=== PATIENT | male | born 1955 | race Caucasian/White ===

== ENCOUNTER → 2020-12-01 15:38 | Outpatient (CLI) | payer BC, SELFPAY ==
[2020-12-01] MEDS: COVID-19 VACC #1, MRNA(MOD) 100 MCG/0.5 ML VIAL IM (15:51)
== END ==
PROVIDERS: Visit Provider Internal Medicine
DX: Z23 Encounter for immunization (principal)
CPT/HCPCS: 0011A; 91301

== ENCOUNTER → 2020-12-29 16:15 | Outpatient (CLI) | payer BC, SELFPAY ==
[2020-12-29] MEDS: COVID-19 VACC #2, MRNA(MOD) 100 MCG/0.5 ML VIAL IM (16:20)
== END ==
PROVIDERS: Visit Provider Internal Medicine
DX: Z23 Encounter for immunization (principal)
CPT/HCPCS: 0012A; 91301

== ENCOUNTER → 2021-02-02 15:10 | Outpatient (CLI) | payer BC, SELFPAY ==
--- NOTE | 2021-02-02 15:10 | DI.CT.S_ITS ---
PROCEDURE: CT ABDOMEN PELVIS WO CON INDICATIONS: Intermitant swelling left abd r/o discrete incisional hernia TECHNIQUE: After the administration of oral contrast, 5 mm thick sections acquired from the diaphragms to the symphysis. 5 mm coronal and sagittal reformats were performed. For radiation dose reduction, the following was used: automated exposure control, adjustment of mA and/or kV according to patient size. COMPARISON: None. FINDINGS: Image quality: Excellent. ABDOMEN: Lung bases: Lung bases are clear. Heart size is normal. Solid organs: Liver is normal in size. Gallbladder appears normal. Pancreas is normal in size. Spleen is normal in size. No adrenal nodules. Both kidneys are normal in size, without hydronephrosis or nephrolithiasis. Peritoneum and bowel: Bowel loops demonstrate normal wall thickness and caliber. No free fluid or air. Nodes and vessels: No retroperitoneal or mesenteric adenopathy by size criteria. Aorta and inferior vena cava are normal in size. Miscellaneous: No ventral hernias. PELVIS: Genitourinary: Bladder wall thickness is normal. Miscellaneous: No inguinal hernias or adenopathy. Bones: No suspicious bony lesions. No vertebral body compression fractures. IMPRESSION: Generalized colonic obstipation is present greater on the right than the left. Oral contrast has transited through the small bowel almost to the cecum. No lesion is found, no body wall hernia is identified and no internal hernia is suspected. Dictated by: Asher Campos M.D. on 02/02/2021 at 17:32 Approved by: Asher Campos M.D. on 02/02/2021 at 17:33
== END ==
PROVIDERS: Referring Provider Specialist; Visit Provider Specialist
DX: R10.32 Left lower quadrant pain (principal); R19.04 Left lower quadrant abdominal swelling, mass and lump; K59.00 Constipation, unspecified
CPT/HCPCS: 74176

== ENCOUNTER → 2021-09-16 11:48 | Outpatient (CLI) | payer BC, SELFPAY ==
[2021-09-16] MEDS: COVID-19 VACC #3, MRNA(MOD) 50 MCG/0.25 ML VIAL IM (12:10)
== END ==
PROVIDERS: PCP Physician Assistant Medical; Visit Provider Internal Medicine
DX: Z23 Encounter for immunization (principal)
CPT/HCPCS: 0013A; 91301

== ENCOUNTER → 2022-01-12 09:51 | Outpatient (CLI) | payer BC, SELFPAY ==
[2022-01-12 19:02] LABS: Alanine Aminotransferase 35 IU/L (<50); Albumin 4.9 g/dL (3.5-5.0); Albumin Globulin Ratio 1.8 (1.0-2.8); Alkaline Phosphatase 58 U/L (38-126); Aspartate Aminotransferase 34 IU/L (17-59); BUN Creatinine Ratio 34.9 (6-22); Bilirubin Total 0.6 mg/dL (0.2-1.3); Blood Urea Nitrogen 30 mg/dL (9-20); Calcium 9.5 mg/dL (8.4-10.2); Carbon Dioxide 33 mmol/L (22-32); Chloride 104 mmol/L (98-107); Estimated Glomerular Filt Rate > 60.0 mL/min (>60); Globulin 2.7 g/dL (1.7-4.1); Glucose 102 mg/dL (80-110); HEMOLYSIS < 15 (0-50); Potassium 4.3 mmol/L (3.4-5.1); Sodium 143 mmol/L (137-145); Total Protein 7.6 g/dL (6.3-8.2)
[2022-01-12 19:04] LABS: Add Manual Diff / Slide Review NO; Basophils Absolute Auto 0 /uL (0-100); Eosinophils Absolute Auto 300 /uL (0-450); Eosinophils Percent Auto 6.2 % (2-4); Hematocrit 47.3 % (41-53); Hemoglobin 15.7 g/dL (13.5-17.5); Lymphocytes Absolute Auto 1200 /uL (1100-4500); Lymphocytes Percent Auto 22.3 % (25-40); Mean Corpuscular HGB Conc 33.2 % (30-36); Mean Corpuscular Hemoglobin 28.1 PG (26-34); Mean Corpuscular Volume 84.7 fL (80-100); Monocytes Absolute Auto 500 /uL (0-900); Monocytes Percent Auto 10.3 % (3-14); Neutrophils Absolute Auto 3100 /uL (1500-7000); Neutrophils Percent Auto 60.2 % (50-75); Platelet Count 244 X10^3/uL (150-400); Red Blood Cell Count 5.59 X10^6/uL (4.5-5.9); Red Cell Distribution Width 13.8 % (11.6-14.8); White Blood Cell Count 5.2 X10^3/uL (4.5-11.0)
[2022-01-12 19:12] LABS: Hemoglobin A1C% w Est Avg Glu 5.7 % (4.0-6.0)
[2022-01-12 19:31] LABS: TSH w/ Reflex to FT4 1.38 uIU/mL (0.47-4.68)
[2022-01-12 19:42] LABS: Prostate Specific Antigen Scrn < 0.064 ng/mL (0.1-4.0)
== END ==
PROVIDERS: PCP Physician Assistant Medical; Visit Provider Family Medicine
DX: I10 Essential (primary) hypertension (principal); M25.559 Pain in unspecified hip; Z12.5 Encounter for screening for malignant neoplasm of prostate
CPT/HCPCS: 80053; 83036; 84443; 85025; G0103

== ENCOUNTER 2022-10-27 23:10 | Emergency (ER) | payer BC, SELFPAY ==
[2022-10-27 23:31] VITALS: BP 141/78; PULSE 52; RESP 18; TEMP 36.6; O2SAT 97; BMI 21.7
--- NOTE | 2022-10-28 00:20 | PC.NURSE ---
states that he is having left side pain that feels like a previous kidney stone - states that he has had similar before - states that it has been years since his last kidney stone - blood in urine - alert and oriented - PWD with respirations equal and unlabored bilaterally
[2022-10-28 00:27] LABS: Bilirubin Urine UA NEGATIVE (NEGATIVE); Glucose Urine UA NEGATIVE (Negative); Ketones Urine UA NEGATIVE (NEGATIVE); Leukocyte Esterase Urine UA NEGATIVE (NEGATIVE); Nitrite Urine UA NEGATIVE (Negative); Occult Blood Urine UA 3+ (Negative); Protein Urine UA 1+ (Negative); Urobilinogen Urine UA 0.2 E.U./dL (0.2)
[2022-10-28 00:28] LABS: Appearance Urine UA Slightly Cloudy; Bacteria Urine Occasional (0-1); Calcium Oxalate Crystals Urine Moderate; Color Urine UA BROWN; RBC Urine 30-100/HPF (0-5/HPF); Squamous Epithelial Cell Urine 0-1 /HPF (0-5/HPF); WBC Urine None Seen (0-5/HPF)
[2022-10-28 00:29] LABS: Culture Indicated Urine Cult Not Indicated
--- NOTE | 2022-10-28 00:38 | ED_ITS ---
HPI - General Adult General Chief complaint: Urogenital-Male Stated complaint: blood in urine Time Seen by Provider: 10/28/22 00:38 Mode of arrival: Ambulatory History of Present Illness HPI narrative: 67-year-old gentleman with a history of epilepsy, bradycardia, hypertension, prostate cancer in 2015 and 1 prior episode of kidney stones that required lithotripsy for treatment approximately 5 years ago presents with left flank pain for the last 48 hours with brown urine noted yesterday in red/bloody urine today. Continues to note some minor left lower quadrant tenderness that is increasing in intensity. He states that he prefers minimal pain medications possible. He has not had any vomiting, diarrhea, fevers, cough, chills, palpitations, chest pain, headaches. Related Data Home Medications Medication Instructions Recorded Confirmed lamotrigine 150 mg tablet 300 mg PO BID 10/03/21 01/12/22 albuterol sulfate 90 mcg/actuation 2 puff inhalation Q6H PRN 01/11/22 01/12/22 aerosol inhaler budesonide 0.5 mg/2 mL suspension 0.5 mg inhalation ONCE 01/11/22 01/12/22 for nebulization metoprolol succinate 25 mg 25 mg PO DAILY 01/11/22 01/12/22 tablet,extended release 24 hr azelastine 137 mcg (0.1 %) nasal 2 spray intranasal BID 01/12/22 01/12/22 spray aerosol fexofenadine 180 mg tablet 180 mg PO DAILY 01/12/22 01/12/22 Previous Rx's Medication Instructions Recorded fluticasone propionate 50 2 spray intranasal DAILY #3 ea 01/24/22 mcg/actuation nasal spray,suspension (Allergy Relief (fluticasone)) amlodipine 10 mg tablet 10 mg PO DAILY #90 tabs 06/19/22 olmesartan 40 mg tablet (Benicar) 40 mg PO DAILY #90 tabs 06/19/22 oxycodone 5 mg tablet 5 mg PO Q6H PRN pain #30 tabs 08/10/22 lidocaine 4 % topical gel 1 applic topical BID #30 grams 08/16/22 tamsulosin 0.4 mg capsule (Flomax) 0.4 mg PO DAILY #30 caps 10/28/22 Allergies Allergy/AdvReac Type Severity Reaction Status Date / Time cat dander Allergy Mild Hives Verified 01/12/22 08:58 pollen extracts Allergy Mild Hives Verified 01/12/22 08:58 levetiracetam [From Keppra] Allergy Unknown Verified 01/12/22 08:58 DUST MITE Allergy Unknown SHORTNESS Uncoded 01/12/22 08:58 OF BREATH Review of Systems Review of Systems Narrative: Remainder of complete review of systems is otherwise unremarkable except for that included in the HPI. Patient History Medical History Allergies Asthma Bradycardia Deviated septum Epilepsy Fracture of lumbar spine Hip pain HTN (hypertension) Prostate cancer (~2014) Unspecified abdominal hernia without obstruction or gangrene Surgical History Anesthesia H/O inguinal hernia repair History of prostatectomy (~2016) Hx of hernia repair Hx of sinus surgery Family History Father Heart disease Stroke Diabetes mellitus Mother Pancreatic cancer Sister Mental health problem Social History marital status: household members: spouse and children occupational status: previously employed Smoking Status: Never smoker substance use type: marijuana Smoking Status: Never smoker Exam Initial Vital Signs Initial Vital Signs: Vital Signs Temperature 98 F 10/27/22 23:31 Pulse Rate 52 L 10/27/22 23:31 Respiratory Rate 18 10/27/22 23:31 Blood Pressure 141/78 H 10/27/22 23:31 Pulse Oximetry 97 10/27/22 23:31 Oxygen Delivery Method 10/27/22 23:31 General: Healthy appearing, in no acute distress. Able to give a complete and coherent history. Well-nourished well-developed HEENT: Moist mucous membranes, normal sclera with reactive pupils, Neck: No JVD, supple Respiratory: Lungs are clear to auscultation, no wheezing no rales no rhonchi. Full and symmetrical air movement Cardiac: Regular rate and rhythm no murmurs no bruits Abdomen: Soft, nontender, good bowel tones, mild left flank pain Skin: Warm and dry, no rashes Neurologic: Grossly neurologically intact with no obvious asymmetries or abnormalities Extremities: No trauma, well perfused Psych: Cooperative, appropriate insight and affect Course Orders Ordered: ED Orders 10/28/22 00:16 Urinalysis and Microscopic Stat 10/28/22 00:30 Complete Blood Count AUTO DIFF Stat Comprehensive Metabolic Panel Stat 10/28/22 00:47 CT kidney ureter bladder (KUB) Stat Sodium Chloride (Normal Saline 0.9%) 1,000 mls @ 1,000 mls/hr IV BOLUS ONE Stop: 10/28/22 01:45 Discontinued Medications Ketorolac Tromethamine (Ketorolac 60 Mg/2 Ml Vial) 15 mg IV NOW ONE Stop: 10/28/22 00:47 Vital Signs Vital signs: Vital Signs - 8 hr 10/27/22 23:31 Temperature 98 F Pulse Rate 52 L Respiratory Rate 18 Blood Pressure 141/78 H Pulse Oximetry 97 Oxygen Delivery Method Room Air Medical Decision Making Lab Data Result diagrams: 10/28/22 00:30 10/28/22 00:30 Labs: Lab Results 10/28/22 10/28/22 10/28/22 Range/Units 00:16 00:30 00:30 WBC 5.9 (4.5-11.0) X10^3/uL RBC 4.79 (4.5-5.9) X10^6/uL Hgb 13.3 L (13.5-17.5) g/dL Hct 40.5 L (41-53) % MCV 84.7 (80-100) fL MCH 27.7 (26-34) PG MCHC 32.8 (30-36) % RDW 14.6 (11.6-14.8) % Plt Count 241 (150-400) X10^3/uL Neut % (Auto) 60.1 (50-75) % Lymph % (Auto) 24.6 L (25-40) % [place] % (Auto) 11.8 (3-14) % Eos % (Auto) 2.8 (2-4) % Baso % (Auto) 0.7 (0-2) % Neut # (Auto) 3500 (4801-9918) /uL Lymph # (Auto) 1400 (2300-1226) /uL [place] # (Auto) 700 (0-900) /uL Eos # (Auto) 200 (0-450) /uL Baso # (Auto) 0 (0-100) /uL Sodium 141 (137-145) mmol/L Potassium 3.9 (3.4-5.1) mmol/L Chloride 103 (98-107) mmol/L Carbon Dioxide 27 (22-32) mmol/L BUN 26 H (9-20) mg/dL Creatinine 0.73 (0.66-1.25) mg/dL Estimated GFR > 60 (>60) mL/min BUN/Creatinine Ratio 35.6 H (6-22) Glucose 90 (80-110) mg/dL Calcium 8.5 (8.4-10.2) mg/dL Total Bilirubin 0.4 (0.2-1.3) mg/dL AST 34 (17-59) IU/L ALT 30 (<50) IU/L Alkaline Phosphatase 56 (38-126) U/L Total Protein 6.9 (6.3-8.2) g/dL Albumin 4.2 (3.5-5.0) g/dL Globulin 2.7 (1.7-4.1) g/dL Albumin/Globulin Ratio 1.6 (1.0-2.8) Urine Color Brown Urine Appearance Slightly cloudy Urine pH 6.0 (4.5-8.0) Ur Specific [place] 1.020 (1.000-1.035) Urine Protein 1+ H (Negative) Urine Glucose (UA) Negative (Negative) g/dL Urine Ketones Negative (NEGATIVE) Urine Occult Blood 3+ H (Negative) Urine Nitrate Negative (Negative) Urine Bilirubin Negative (NEGATIVE) Urine Urobilinogen 0.2 (0.2) E.U./dL Ur Leukocyte Esterase Negative (NEGATIVE) Urine RBC 30-100/hpf H (0-5/HPF) Urine WBC None seen (0-5/HPF) Ur Squamous Epith Cells 0-1 /hpf (0-5/HPF) Calcium Oxalate Crystal Moderate H Urine Bacteria Occasional (0-1) (None) Ur Culture Indicated? Cult not indicated Imaging Data CT scan - abdomen/pelvis: Radiologist's Impression: FINDINGS:? Image quality:? Excellent.? ? Lung bases:? Unremarkable.? ? Heart:? No significant findings. ? URINARY: Right Kidney: ? No stones or hydronephrosis.? Right Ureter:? No hydroureter.? ? Left Kidney:? Slight asymmetric prominence of the left central renal collecting system.? Additionally a nonobstructive calcification is seen at the middle 3rd of the posterior border of the collecting system on the left measuring 1 mm or less. Left Ureter:? Along the course of the left ureter there is a 1.5 mm calcificat ion seen on series 2, image 49.? ? Bladder:? Normal wall thickness. No stones. ? ? ? ABDOMEN: Liver:? Unremarkable.? ? Gallbladder:? Normal.? ? Biliary ducts:? Unremarkable.? ? Pancreas:? Unremarkable.? ? Spleen:? Unremarkable.? ? Adrenal Glands:? Unremarkable.? ? ? Stomach and Bowel:? Stomach, small bowel loops, and colon are unremarkable.? Peritoneum:? No abnormal intraperitoneal fluid.? No free air.? ? Ventral Wall: ? No hernia.? Abdominal Nodes:? No enlarged retroperitoneal or mesenteric lymph nodes.? Vessels:? Aorta and inferior vena cava are normal in size.? ? PELVIS: Pelvic Organs:? Unremarkable.? ? Pelvic Nodes: Unremarkable. Miscellaneous: No inguinal hernias are seen. ? ? ? Bones:? Unremarkable. ? IMPRESSION:? Slight asymmetric prominence of the left renal collecting system.? Along the expected course of the left ureter more distally there is a single 1.5 mm calcification as the presumed cause for left-sided symptomatology. ? ? ? Dictated by: Asher Campos M.D. on 10/28/2022 at 1:18 ? ? [facility] Narrative Medical decision making narrative: 67-year-old gentleman with a history of calcium oxalate kidney stone presents with increasing left flank and left lower quadrant tenderness. His urine has multiple red blood cells but does not suggest urinary tract infection. CT KUB does show mild left hydronephrosis and nonobstructing ureteral stone in the middle 3rd of the ureter. Findings reviewed with patient. At this point he is not showing signs of urinary tract infection, stone is not obstructing but this does offer a reasonable explanation for his left flank pain. Will suggest that he continue to use ibuprofen to help with pain control, drink plenty fluids and schedule an outpatient follow-up with [facility] Discharge Plan Departure Patient Disposition: Home Clinical Impression: Ureterolithiasis Instructions: DI for Kidney Stones Activity Restrictions/Additional Instructions: Thank you for coming in tonight It does look like you have a small stone in your left ureter. This is not completely obstructing which is probably why it has been irritating over the last 2 weeks but not dramatic pain. Using 400 mg of ibuprofen (2 [id number] pills) and 1 Tylenol every 6 hours can be very helpful in controlling pain. Please make sure you are also drinking plenty of water Flomax and help encourage kidney stones to pass, I am going to have you take 1 Flomax daily. You can stop taking this once the stone has passed. This prescription was electronically transmitted to [facility]. Would encourage you to schedule an appointment with urology at . The phone number to schedule an appointment is [phone] If you find that you are getting worse or develop any new symptoms, please feel free to return to the emergency department for further evaluation. Prescriptions: New tamsulosin [Flomax] 0.4 mg capsule 0.4 mg PO DAILY Qty: 30 0RF No Action lamotrigine 150 mg tablet 300 mg PO BID fluticasone propionate [Allergy Relief (fluticasone)] 50 mcg/actuation spray,suspension 2 spray intranasal DAILY Qty: 3 3RF Rx Instructions: administer into each nostril amlodipine 10 mg tablet 10 mg PO DAILY Qty: 90 1RF olmesartan [Benicar] 40 mg tablet 40 mg PO DAILY Qty: 90 1RF lidocaine 4 % gel 1 applic topical BID Qty: 30 0RF fexofenadine 180 mg tablet 180 mg PO DAILY azelastine 137 mcg (0.1 %) aerosol,spray 2 spray intranasal BID Rx Instructions: administer into each nostril metoprolol succinate 25 mg tablet extended release 24 hr 25 mg PO DAILY budesonide 0.5 mg/2 mL suspension for nebulization 0.5 mg inhalation ONCE albuterol sulfate 90 mcg/actuation HFA aerosol inhaler 2 puff inhalation Q6H PRN oxycodone 5 mg tablet 5 mg PO Q6H PRN (Reason: pain) Qty: 30 0RF Rx Instructions: 1-2 po prn Referrals: Sonam Calloway MD [Physician] - Darlene Johnson PA-C [Primary Care Provider] -
--- NOTE | 2022-10-28 00:47 | DI.CT.S_ITS ---
PROCEDURE: CT KIDNEY URETER BLADDER (KUB) INDICATIONS: left flank pain ? kidney stone TECHNIQUE: Axial sections were acquired from the lung bases to the pubic symphysis. Coronal and sagittal reformats were performed. For radiation dose reduction, the following was used: automated exposure control, adjustment of mA and/or kV according to patient size. COMPARISON: None. FINDINGS: Image quality: Excellent. Lung bases: Unremarkable. Heart: No significant findings. URINARY: Right Kidney: No stones or hydronephrosis. Right Ureter: No hydroureter. Left Kidney: Slight asymmetric prominence of the left central renal collecting system. Additionally a nonobstructive calcification is seen at the middle 3rd of the posterior border of the collecting system on the left measuring 1 mm or less. Left Ureter: Along the course of the left ureter there is a 1.5 mm calcification seen on series 2, image 49. Bladder: Normal wall thickness. No stones. ABDOMEN: Liver: Unremarkable. Gallbladder: Normal. Biliary ducts: Unremarkable. Pancreas: Unremarkable. Spleen: Unremarkable. Adrenal Glands: Unremarkable. Stomach and Bowel: Stomach, small bowel loops, and colon are unremarkable. Peritoneum: No abnormal intraperitoneal fluid. No free air. Ventral Wall: No hernia. Abdominal Nodes: No enlarged retroperitoneal or mesenteric lymph nodes. Vessels: Aorta and inferior vena cava are normal in size. PELVIS: Pelvic Organs: Unremarkable. Pelvic Nodes: Unremarkable. Miscellaneous: No inguinal hernias are seen. Bones: Unremarkable. IMPRESSION: Slight asymmetric prominence of the left renal collecting system. Along the expected course of the left ureter more distally there is a single 1.5 mm calcification as the presumed cause for left-sided symptomatology. Dictated by: Asher Campos M.D. on 10/28/2022 at 1:18 Approved by: Asher Campos M.D. on 10/28/2022 at 1:21
--- NOTE | 2022-10-28 00:56 | PC.NURSE ---
Ambulatory to CT with tech
--- NOTE | 2022-10-28 01:00 | PC.NURSE ---
returns to the ER from radiology
[2022-10-28 01:16] LABS: Add Manual Diff / Slide Review NO; Basophils Absolute Auto 0 /uL (0-100); Basophils Percent Auto 0.7 % (0-2); Eosinophils Absolute Auto 200 /uL (0-450); Eosinophils Percent Auto 2.8 % (2-4); Hematocrit 40.5 % (41-53); Hemoglobin 13.3 g/dL (13.5-17.5); Lymphocytes Absolute Auto 1400 /uL (1100-4500); Lymphocytes Percent Auto 24.6 % (25-40); Mean Corpuscular HGB Conc 32.8 % (30-36); Mean Corpuscular Hemoglobin 27.7 PG (26-34); Mean Corpuscular Volume 84.7 fL (80-100); Monocytes Absolute Auto 700 /uL (0-900); Monocytes Percent Auto 11.8 % (3-14); Neutrophils Absolute Auto 3500 /uL (1500-7000); Neutrophils Percent Auto 60.1 % (50-75); Platelet Count 241 X10^3/uL (150-400); Red Blood Cell Count 4.79 X10^6/uL (4.5-5.9); Red Cell Distribution Width 14.6 % (11.6-14.8); White Blood Cell Count 5.9 X10^3/uL (4.5-11.0)
[2022-10-28 01:22] LABS: Alanine Aminotransferase 30 IU/L (<50); Albumin 4.2 g/dL (3.5-5.0); Albumin Globulin Ratio 1.6 (1.0-2.8); Alkaline Phosphatase 56 U/L (38-126); Aspartate Aminotransferase 34 IU/L (17-59); BUN Creatinine Ratio 35.6 (6-22); Bilirubin Total 0.4 mg/dL (0.2-1.3); Blood Urea Nitrogen 26 mg/dL (9-20); Calcium 8.5 mg/dL (8.4-10.2); Carbon Dioxide 27 mmol/L (22-32); Chloride 103 mmol/L (98-107); Estimated Glomerular Filt Rate > 60 mL/min (>60); Globulin 2.7 g/dL (1.7-4.1); Glucose 90 mg/dL (80-110); HEMOLYSIS 20 (0-50); Potassium 3.9 mmol/L (3.4-5.1); Sodium 141 mmol/L (137-145); Total Protein 6.9 g/dL (6.3-8.2)
[2022-10-28] MEDS: TAMSULOSIN 0.4 MG CAPSULE PO (01:50)
[2022-10-28 02:00] VITALS: BP 147/85; PULSE 54; RESP 16; O2SAT 98
== END 2022-10-28 02:05 | disposition home or self-care (01) ==
PROVIDERS: Emergency Provider Emergency Medicine; PCP Physician Assistant Medical
DX: N20.1 Calculus of ureter (principal); R10.9 Unspecified abdominal pain; Z87.442 Personal history of urinary calculi
CPT/HCPCS: 36415; 74176; 80053; 81001; 85025; 99283; 99284

== ENCOUNTER → 2022-11-23 11:46 | Outpatient (CLI) | payer BC, SELFPAY ==
[2022-11-23 13:32] LABS: Appearance Urine UA CLEAR; Bilirubin Urine UA NEGATIVE (NEGATIVE); Color Urine UA YELLOW; Glucose Urine UA NEGATIVE (Negative); Ketones Urine UA TRACE (NEGATIVE); Leukocyte Esterase Urine UA NEGATIVE (NEGATIVE); Nitrite Urine UA NEGATIVE (Negative); Occult Blood Urine UA 3+ (Negative); Protein Urine UA NEGATIVE (Negative); Specific Gravity Urine UA 1.015 (1.000-1.035); Urobilinogen Urine UA 0.2 E.U./dL (0.2); pH Urine UA 5.5 (4.5-8.0)
[2022-11-23 13:37] LABS: Hematocrit 43.2 % (41-53); Hemoglobin 14.2 g/dL (13.5-17.5)
[2022-11-23 13:54] LABS: Bacteria Urine None Seen; Culture Indicated Urine Cult Not Indicated; RBC Urine 5-10/HPF (0-5/HPF); WBC Urine None Seen (0-5/HPF)
[2022-11-23 14:06] LABS: Hemoglobin A1C% w Est Avg Glu 5.5 % (4.0-6.0)
[2022-11-23 14:45] LABS: BUN Creatinine Ratio 23.7 (6-22); Blood Urea Nitrogen 18 mg/dL (9-20); Calcium 9.2 mg/dL (8.4-10.2); Carbon Dioxide 27 mmol/L (22-32); Chloride 102 mmol/L (98-107); Estimated Glomerular Filt Rate > 60 mL/min (>60); Glucose 88 mg/dL (80-110); HEMOLYSIS < 15 (0-50); Potassium 4.2 mmol/L (3.4-5.1); Sodium 138 mmol/L (137-145)
[2022-11-23 18:22] LABS: Creatinine Urine Random 98.5 mg/dL; Protein (Total) Urine Random 7 mg/dL (0-12); Protein Creatinine Ratio Urine 0.07 GRAM/24H
[2022-11-23 18:29] LABS: Microalbumi Creatinin Ratio Ur 13.4 ug/mg CR (<30); Microalbumin Urine Random 1.3 mg/dL (0-1.6)
== END ==
PROVIDERS: Family Medicine; PCP Physician Assistant Medical; Referring Provider Student in an Organized Health Care Education/Training Program; Visit Provider Student in an Organized Health Care Education/Training Program
DX: N05.9 Unspecified nephritic syndrome with unspecified morphologic changes (principal); E11.9 Type 2 diabetes mellitus without complications; D64.9 Anemia, unspecified; R80.9 Proteinuria, unspecified; R19.04 Left lower quadrant abdominal swelling, mass and lump; N20.0 Calculus of kidney; R31.9 Hematuria, unspecified; R93.429 Abnormal radiologic findings on diagnostic imaging of unspecified kidney
CPT/HCPCS: 36415; 80048; 81001; 82043; 82570; 83036; 84156; 85014; 85018

== ENCOUNTER → 2024-01-31 10:58 | Outpatient (CLI) | payer OTHER, SELFPAY ==
[2024-01-31 21:06] LABS: Appearance Urine UA CLEAR; Bilirubin Urine UA NEGATIVE (NEGATIVE); Color Urine UA YELLOW; Glucose Urine UA NEGATIVE (Negative); Ketones Urine UA NEGATIVE (NEGATIVE); Leukocyte Esterase Urine UA NEGATIVE (NEGATIVE); Nitrite Urine UA NEGATIVE (Negative); Occult Blood Urine UA NEGATIVE (Negative); Protein Urine UA NEGATIVE (Negative); Urobilinogen Urine UA 0.2 E.U./dL (0.2)
[2024-01-31 21:48] LABS: Bacteria Urine None Seen; Culture Indicated Urine Cult Not Indicated; RBC Urine None Seen (0-5/HPF); Urine Volume 10mL (spun); WBC Urine None Seen (0-5/HPF)
[2024-01-31 22:26] LABS: Squamous Epithelial Cell Urine None Seen (0-5/HPF)
== END ==
PROVIDERS: PCP Family Medicine; Visit Provider Urology
DX: N20.0 Calculus of kidney (principal)
CPT/HCPCS: 81001

== ENCOUNTER → 2024-02-12 13:40 | Outpatient (CLI) | payer OTHER, SELFPAY ==
[2024-02-12 23:24] LABS: Appearance Urine UA TURBID
[2024-02-12 23:25] LABS: Color Urine UA BROWN
[2024-02-12 23:26] LABS: Bacteria Urine None Seen; Culture Indicated Urine Cult Not Indicated; RBC Urine >100/HPF (0-5/HPF); Squamous Epithelial Cell Urine 1-5 /HPF (0-5/HPF); Urine Volume 10mL (spun); WBC Urine None Seen (0-5/HPF)
== END ==
PROVIDERS: PCP Family Medicine; Visit Provider Urology
DX: N20.0 Calculus of kidney (principal)
CPT/HCPCS: 81001

== ENCOUNTER → 2024-07-08 10:18 | Outpatient (CLI) | payer OTHER, SELFPAY ==
[2024-07-08 20:22] LABS: Alanine Aminotransferase 30 IU/L (<50); Albumin 4.5 g/dL (3.5-5.0); Albumin Globulin Ratio 1.6 (1.0-2.8); Alkaline Phosphatase 76 U/L (38-126); Aspartate Aminotransferase 69 IU/L (17-59); BUN Creatinine Ratio 22.1 (6-22); Bilirubin Total 0.6 mg/dL (0.2-1.3); Blood Urea Nitrogen 19 mg/dL (9-20); Calcium 9.4 mg/dL (8.4-10.2); Carbon Dioxide 30 mmol/L (22-32); Chloride 101 mmol/L (98-107); Cholesterol 235 mg/dL (140-199); Estimated Glomerular Filt Rate > 60 mL/min (>60); Globulin 2.8 g/dL (1.7-4.1); Glucose 101 mg/dL (80-110); HDL Cholesterol 92 mg/dL (40-60); HEMOLYSIS 20 (0-50); LDL Cholesterol Calculated 128 mg/dL (<100); Sodium 139 mmol/L (137-145); Total Protein 7.3 g/dL (6.3-8.2); Triglycerides 75 mg/dL (35-150)
[2024-07-08 20:24] LABS: Add Manual Diff / Slide Review NO; Basophils Absolute Auto 0 /uL (0-100); Basophils Percent Auto 0.6 % (0-2); Eosinophils Absolute Auto 300 /uL (0-450); Eosinophils Percent Auto 5.1 % (2-4); Hematocrit 45.1 % (41-53); Hemoglobin 15.2 g/dL (13.5-17.5); Hemoglobin A1C% w Est Avg Glu 5.5 % (4.0-6.0); Lymphocytes Absolute Auto 1100 /uL (1100-4500); Lymphocytes Percent Auto 20.9 % (25-40); Mean Corpuscular HGB Conc 33.7 % (30-36); Mean Corpuscular Hemoglobin 28.7 PG (26-34); Mean Corpuscular Volume 85.1 fL (80-100); Monocytes Absolute Auto 500 /uL (0-900); Monocytes Percent Auto 9.9 % (3-14); Neutrophils Absolute Auto 3300 /uL (1500-7000); Neutrophils Percent Auto 63.5 % (50-75); Platelet Count 233 X10^3/uL (150-400); White Blood Cell Count 5.2 X10^3/uL (4.5-11.0)
[2024-07-08 20:53] LABS: TSH w/ Reflex to FT4 2.56 uIU/mL (0.47-4.68)
[2024-07-10 07:36] LABS: PSA Ultrasensitive <0.006 ng/mL (0.000-4.000)
== END ==
PROVIDERS: PCP Family Medicine; Visit Provider Family Medicine
DX: R73.9 Hyperglycemia, unspecified (principal); G40.909 Epilepsy, unspecified, not intractable, without status epilepticus; I10 Essential (primary) hypertension; Z85.46 Personal history of malignant neoplasm of prostate
CPT/HCPCS: 80053; 80061; 83036; 84153; 84443; 85025

== ENCOUNTER → 2025-08-18 09:55 | Outpatient (CLI) | payer OTHER, SELFPAY ==
[2025-08-18 18:50] LABS: Hematocrit 44.1 % (41-53); Hemoglobin 14.9 g/dL (13.5-17.5); Mean Corpuscular HGB Conc 33.7 % (30-36); Mean Corpuscular Hemoglobin 28.6 PG (26-34); Mean Corpuscular Volume 84.8 fL (80-100); Platelet Count 189 X10^3/uL (150-400)
[2025-08-18 19:15] LABS: HEMOLYSIS 19 (0-50); Iron 117 ug/dL (49-181)
[2025-08-18 19:17] LABS: Alanine Aminotransferase 27 IU/L (<50); Albumin 4.2 g/dL (3.5-5.0); Albumin Globulin Ratio 1.9 (1.0-2.8); Alkaline Phosphatase 54 U/L (38-126); Blood Urea Nitrogen 18 mg/dL (9-20); Calcium 9.4 mg/dL (8.4-10.2); Carbon Dioxide 29 mmol/L (22-32); Chloride 103 mmol/L (98-107); Cholesterol 193 mg/dL (140-199); Estimated Glomerular Filt Rate > 60 mL/min (>60); Globulin 2.2 g/dL (1.7-4.1); Glucose 115 mg/dL (70-99); HDL Cholesterol 68 mg/dL (40-60); HEMOLYSIS < 15 (0-50); Potassium 4.4 mmol/L (3.4-5.1); Sodium 139 mmol/L (137-145); Total Protein 6.4 g/dL (6.3-8.2); Triglycerides 92 mg/dL (35-150)
[2025-08-18 19:30] LABS: Percent Iron Saturation 39 % (20-50); Total Iron Binding Capacity 301 ug/dL (261-462); Transferrin 243 mg/dL (206-381)
[2025-08-18 19:46] LABS: Hemoglobin A1C% w Est Avg Glu 5.8 % (4.0-6.0)
[2025-08-18 19:49] LABS: Thyroid Stimulating Hormone 2.22 uIU/mL (0.47-4.68)
[2025-08-18 19:52] LABS: Ferritin 75 ng/mL (18-464)
[2025-08-19 04:08] LABS: Hepatitis A Antibody IgM Negative (Negative); Hepatitis B Core Antibody IgM Negative (Negative); Hepatitis C Antibody Non Reactive (Non Reactive)
== END ==
PROVIDERS: PCP Family Medicine; Visit Provider Family Medicine
DX: C61 Malignant neoplasm of prostate (principal); I10 Essential (primary) hypertension; G40.901 Epilepsy, unspecified, not intractable, with status epilepticus; R82.998 Other abnormal findings in urine; R73.9 Hyperglycemia, unspecified; R74.01 Elevation of levels of liver transaminase levels; K75.9 Inflammatory liver disease, unspecified
CPT/HCPCS: 80053; 80061; 80074; 82728; 83036; 83540; 83550; 84153; 84443; 85027